=== PATIENT | male | born 1975 | race Caucasian/White ===

== ENCOUNTER 2017-01-11 18:57 | Emergency (ER) | payer OTHER ==
[2017-01-11] MEDS ORDERED: CYCLOBENZAPRINE 10 MG TABLET PO STA (19:48)
[2017-01-11] MEDS ORDERED: HYDROcod/ACETAM 5/325 MG TABLET PO STA (19:48)
[2017-01-11] MEDS ORDERED: DEXAMETHASONE 10 MG/ML VIAL PO STA (19:48)
[2017-01-11] MEDS ORDERED: CYCLOBENZAPRINE 10 MG TABLET PO ONE (19:49)
[2017-01-11] MEDS ORDERED: DEXAMETHASONE 10 MG/ML VIAL ONE (19:49)
[2017-01-11] MEDS ORDERED: HYDROcod/ACETAM 5/325 MG TABLET ONE (19:49)
== END 2017-01-11 20:03 | disposition home or self-care (01) ==
DX: M54.12 Radiculopathy, cervical region (principal); M54.2 Cervicalgia; M62.838 Other muscle spasm; R03.0 Elevated blood-pressure reading, without diagnosis of hypertension
CPT/HCPCS: 99283; A9270

== ENCOUNTER 2017-02-02 13:46 | Outpatient (CLI) | payer OTHER | END 2017-02-02 13:47 | disposition home or self-care (01) | DX: M50.31 Other cervical disc degeneration, high cervical region (principal); M47.812 Spondylosis without myelopathy or radiculopathy, cervical region ==

== ENCOUNTER 2018-08-16 10:30 | Day surgery (SDC) | payer OTHER ==
[~2018-08-16 10:30] MED LIST: BUPIVACAINE 0.25% PF 30 ML VIAL ONE
[2018-08-16] MEDS ORDERED: ceFAZolin 2 GM/50 ML 2 GM/50 ML BAG IV ONE (10:42)
--- NOTE | 2018-08-16 10:59 | ANESTHESIA ---
Pre-Anesthesia VS, & Labs - Diagnosis right 5th metatarsal winn fracture - Procedure right 5th metatarsal open reduction internal fixation Height 5 ft 9 in Weight (kg) 90.8 kg Body Mass Index 28.0 - NPO >8 hours Home Medications and Allergies Home Medications: Ambulatory Orders Acetaminophen [Tylenol] 650 mg PO Q6H PRN 08/13/18 Acetaminophen [Tylenol] 650 mg PO Q6H PRN 08/13/18 Allergies/Adverse Reactions: Allergies Allergy/AdvReac Type Severity Reaction Status Date / Time No Known Drug Allergies Allergy Verified 08/13/18 15:12 Anes History & Medical History - Anesthetic History Anesthesia Complications: reports: No previous complications Family history of Anesthesia Complications: Denies Family history of Malignant Hyperthermia: Denies - Medical History Cardiovascular: reports: None Pulmonary: reports: None Gastrointestinal: reports: None Urinary: reports: None Neuro: reports: None Musculoskeletal: reports: None, Other Endocrine/Autoimmune: reports: None Blood Disorders: reports: None Skin: reports: None Smoking Status: Never smoker Psychosocial: reports: No issues indicated - Surgical History Orthopedic: Other (Cervical disk sugery, 2 levels) Exam General: Alert Dental: Loose/Frag (cracked, right molar) Mouth Opening: Greater than 4 Fingerbreadths Neck Mobility: Normal Mallampati classification: II Thyromental Distance: greater than 6 cm Respiratory: Lungs clear Cardiovascular: Regular rate Neurological: Normal speech Cognitive Status: Within normal limits Plan Anesthesia Type: General Consent for Procedure(s) Verified and Reviewed: Yes Code Status: Attempt Resuscitation ASA classification: 1-Healthy patient Is this case an emergency?: No
[2018-08-16] MEDS ORDERED: LACTATED RINGERS 1,000 ML IV ONE ×2 (11:06→13:41)
[2018-08-16] MEDS ORDERED: KETOROLAC 30 MG/ML VIAL IVP ONE (13:10)
[2018-08-16] MEDS ORDERED: DEXAMETHASONE 4 MG/ML VIAL IVP ONE (13:10)
[2018-08-16] MEDS ORDERED: ePHEDrine 50 MG/ML VIAL IVP ONE (13:10)
[2018-08-16] MEDS ORDERED: PROPOFOL 200 MG/20 ML VIAL IVP ONE (13:10)
[2018-08-16] MEDS ORDERED: MIDAZOLAM 2 MG/2 ML VIAL IVP ONE (13:10)
[2018-08-16] MEDS ORDERED: ONDANSETRON 4 MG/2 ML VIAL IVP ONE (13:10)
[2018-08-16] MEDS ORDERED: LIDOCAINE-MPF 2% 5 ML VIAL IM ONE (13:10)
[2018-08-16] MEDS ORDERED: BUPIVACAINE 0.25% PF 30 ML VIAL SUBQ ONE ×2 (13:39)
[2018-08-16] MEDS: HYDROmorphone 1 MG/ML CARPUJECT ONE ×2 (14:05→14:14)
[2018-08-16] MEDS ORDERED: oxyCODONE 5 MG TABLET PO PRN (14:28)
[2018-08-16] MEDS ORDERED: ONDANSETRON 4 MG/2 ML VIAL IVP PRN (14:28)
--- NOTE | 2018-08-16 14:28 | XRAY Report ---
Reason: right metatarsal fracture Procedure Date: 08/16/2018 Accession Number: [id number] / [id number] Procedure: FL - OR C-Arm Procedure CPT Code: FULL RESULT: EXAM: FLUOROSCOPIC GUIDANCE/FOOT 3 VIEW RIGHT EXAM DATE: 08/16/2018 01:47 PM. CLINICAL HISTORY: Right metatarsal fracture. COMPARISON: ARTHROGRAM 03/14/2016 2:25 PM RIGHT FOOT 08/16/2018 1:47 PM. FINDINGS: The radiologist was not present during the procedure. A Mariaelena wire is seen at the base of the fifth metatarsal followed by cannulated partially threaded compression screw following the same trajectory of the previously seen Mariaelena wire. IMPRESSION: Fluoroscopic guidance provided for right metatarsal fracture operative repair. Total fluoroscopy time: 20 seconds. Number of images: 6. RADIA
--- NOTE | 2018-08-16 14:33 | OPERATIVE REPORT ---
Operative Report - General Procedure Date: 08/16/18 Planned Procedure: Percutaneous fixation of her right fifth metatarsal fracture Pre-Op Diagnosis: Right fifth metatarsal fracture Procedure Performed: Percutaneous fixation of right fifth metatarsal fracture Post Op Diagnosis: Right fifth metatarsal fracture - Procedure Note Primary Surgeon: Toni Llanos Secondary Surgeon: Gerardo Garcia Estimated Blood Loss (mL): 5 Complications: None - Other Other Information/Narrative: DETAILED PROCEDURE: Closed reduction percutaneous fixation of proximal fifth metatarsal fracture IMPLANTS: 5.5 mm solid screw Arthrex POSTOPERATIVE PLAN: No weightbearing for 6 weeks. Boot with ankle range of motion as tolerated. Advance activity after 6 weeks if there is radiographic evidence of healing. FINDINGS: Fracture reduced and compressed. INDICATION FOR SURGERY: 43-year-old male sustained the above fracture last week. We discussed the risks benefits and alternatives to surgery. He originally selected nonoperative management but later decided to have surgery to prevent today a nonunion. Risks include pain, bleeding, infection, damage to nearby structures, lack of symptom relief, implant complications, stiffness, need for further surgeries, DVT, PE, stroke, and even . He signed a written consent form. PROCEDURE IN DETAIL: The patient was met in the preoperative holding on the day of the procedure. Operative extremity was signed. Consent was verified. He desired to proceed. Regional anesthesia was obtained in the preoperative area. He was brought to the operating room and surrendered to anesthesia. Once general anesthesia was obtained he was placed in the supine position and a large bump was placed under the hip. His foot was cleansed with a scrub brush and alcohol. He was then prepped and draped in the standard sterile fashion. A surgical timeout was held to confirm the patient procedure, identity, procedure, laterality, allergies, images, and antibiotics. All were in agreement we proceeded. Under fluoroscopic guidance a K wire was placed in the high and inside position and brought into the intramedullary canal. A 1 cm incision was made over this. 3.5 mm drill opened the canal and reamed the shaft. The tap was then placed and I measured using fluoroscopy to ensure that the threads were beyond the fracture line and that the screw would advance fully to compress the fracture. The K wire and tap were then removed and the appropriately sized 5.5 millimeters screw was placed with excellent purchase. The fracture line was obliterated on x-ray. Final images were then taken. The wound was irrigated and a single stitch was placed. 10 cc of quarter percent Marcaine were placed about the foot and a sterile dressing and boot was applied. As we finished placing the dressing anesthesia noted that the patient was vomiting and acted quickly with suction. He awakened and was transferred to the recovery room without issue.
--- NOTE | 2018-08-16 14:34 | XRAY Report ---
Reason: RIGHT METATARSAL FRACTURE Procedure Date: 08/16/2018 Accession Number: [id number] / [id number] Procedure: XR - Foot 3 View RT CPT Code: FULL RESULT: EXAM: FLUOROSCOPIC GUIDANCE/FOOT 3 VIEW RIGHT EXAM DATE: 08/16/2018 01:47 PM. CLINICAL HISTORY: Right metatarsal fracture. COMPARISON: ARTHROGRAM 03/14/2016 2:25 PM RIGHT FOOT 08/16/2018 1:47 PM. FINDINGS: The radiologist was not present during the procedure. A Mariaelena wire is seen at the base of the fifth metatarsal followed by cannulated partially threaded compression screw following the same trajectory of the previously seen Mariaelena wire. IMPRESSION: Fluoroscopic guidance provided for right metatarsal fracture operative repair. Total fluoroscopy time: 20 seconds. Number of images: 6. RADIA
[2018-08-16] MEDS ORDERED: oxyCODONE 5 MG TABLET ONE (14:49)
[2018-08-16 15:05] VITALS: BP 114/74
== END 2018-08-16 10:31 | disposition home or self-care (01) ==
LOC: SDS 10:30
PROVIDERS: ATTEND Orthopaedic Surgery
PROC: 0QSN34Z Reposition Right Metatarsal with Internal Fixation Device, Percutaneous Approach (ICD-10-PCS; principal; 2018-08-16 11:45)
DX: S92.351A Displaced fracture of fifth metatarsal bone, right foot, initial encounter for closed fracture (principal); X50.1XXA Overexertion from prolonged static or awkward postures, initial encounter; Y93.68 Activity, volleyball (beach) (court); M10.9 Gout, unspecified; G47.30 Sleep apnea, unspecified; M50.20 Other cervical disc displacement, unspecified cervical region; F17.223 Nicotine dependence, chewing tobacco, with withdrawal; Z79.891 Long term (current) use of opiate analgesic; Z79.82 Long term (current) use of aspirin
CPT/HCPCS: 28476; 73630; A9270; J0690; J1170; J7120

== ENCOUNTER 2018-08-27 09:18 | Outpatient (CLI) | payer OTHER | END 2018-08-27 09:19 | disposition home or self-care (01) | LOC: SC 09:18 | PROVIDERS: ATTEND Internal Medicine Pulmonary Disease | DX: R06.81 Apnea, not elsewhere classified (principal); G47.10 Hypersomnia, unspecified; G47.8 Other sleep disorders; R06.83 Snoring; R09.89 Other specified symptoms and signs involving the circulatory and respiratory systems | CPT/HCPCS: 99203; 99212 ==

== ENCOUNTER 2018-10-04 20:32 | Outpatient (CLI) | payer OTHER | END 2018-10-04 20:33 | disposition home or self-care (01) | LOC: SC 20:32 | PROVIDERS: ATTEND Internal Medicine Pulmonary Disease | DX: G47.33 Obstructive sleep apnea (adult) (pediatric) (principal); G47.61 Periodic limb movement disorder | CPT/HCPCS: 95810 ==

== ENCOUNTER 2018-11-21 09:11 | Outpatient (CLI) | payer OTHER | END 2018-11-21 09:12 | disposition home or self-care (01) | LOC: SC 09:11 | PROVIDERS: ATTEND Nurse Practitioner Family | DX: G47.33 Obstructive sleep apnea (adult) (pediatric) (principal) | CPT/HCPCS: 99212; 99214 ==

== ENCOUNTER 2018-12-19 10:41 | Outpatient (CLI) | payer OTHER | END 2018-12-19 10:42 | disposition home or self-care (01) | LOC: SC 10:41 | PROVIDERS: ATTEND Nurse Practitioner Family | DX: G47.33 Obstructive sleep apnea (adult) (pediatric) (principal) | CPT/HCPCS: 99212; 99213 ==

== ENCOUNTER 2020-04-22 17:39 | Emergency (ER) | payer OTHER ==
--- NOTE | 2020-04-22 18:22 | ED Physician Documentation ---
PD HPI HEAD INJURY - Stated complaint Stated Complaint: HEAD LAC - Chief complaint Chief Complaint: Laceration - History obtained from History obtained from: Patient - History of Present Illness Mechanism of head injury: Other (scraped head on roof of car) Where head injury occurred: Home Timing - onset: Today Location of injury: Top Quality of pain: Pain Associated symptoms: Other (laceration). No: LOC, AMS, Amnesia, Nausea / vomiting, Neck pain, Paresthesias, Seizures, Ear drainage, Nasal drainage Symptoms improve with: Rest Symptoms worsen with: Palpation, Movement Contributing factors: No: Anticoagulated Similar symptoms before: Diagnosis (laceration) Recently seen: Not recently seen - Additional information Additional information: 45-year-old male was getting into a small car with his sunglasses over the top of his head when he abraded his head on the roof of the car he pushed to the sunglasses across his head and lacerated the top of his head. He was able to control bleeding with direct pressure. Review of Systems Constitutional: denies: Fever Eyes: denies: Decreased vision Ears: denies: Ear pain Nose: denies: Congestion Throat: denies: Sore throat Respiratory: denies: Cough GI: denies: Vomiting, Constipation, Diarrhea PD PAST MEDICAL HISTORY - Past Medical History Cardiovascular: None Respiratory: None Neuro: None Endocrine/Autoimmune: None GI: None : None HEENT: None Psych: None Musculoskeletal: None, Other Derm: None - Past Surgical History Past Surgical History: No Ortho: Other (Cervical disk sugery, 2 levels) - Present Medications Home Medications: Ambulatory Orders Medication Instructions Recorded Confirmed Acetaminophen [Tylenol] 650 mg PO Q6H PRN 08/13/18 08/16/18 - Allergies Allergies/Adverse Reactions: Allergies Allergy/AdvReac Type Severity Reaction Status Date / Time No Known Drug Allergies Allergy Verified 04/22/20 18:01 - Social History Does the pt smoke?: No Smoking Status: Never smoker Does the pt drink ETOH?: Yes Does the pt have substance abuse?: No - Immunizations Immunizations are current?: Yes - POLST Patient has POLST: No PD ED PE NORMAL - Vitals Vital signs reviewed: Yes (Hypertensive) - General General: Alert and oriented X 3, No acute distress, Well developed/nourished - HEENT HEENT: PERRL, EOMI, Other (There is a 5.5 cm length linear laceration that is clean in the middle of the head. Running anterior posterior) - Neck Neck: Supple, no meningeal sign, No bony TTP - Respiratory Respiratory: No respiratory distress - Derm Derm: Normal color, Warm and dry, No rash - Extremities Extremities: No deformity, No edema - Neuro Neuro: Alert and oriented X 3, wellness program manager 2-12 intact, No motor deficit, No sensory deficit, Normal speech Eye Opening: Spontaneous Motor: Obeys Commands Verbal: Oriented GCS Score: 15 - Psych Psych: Normal mood, Normal affect Results - Vitals Vitals: Vital Signs - 24 hr 04/22/20 17:50 Temperature 36.3 C L Heart Rate 60 Respiratory 16 Rate Blood Pressure 131/72 H O2 Saturation 99 Oxygen O2 Source Room air Procedures - Laceration (location) scalp Length in cm: 5.5 Wound type: Linear, Clean Neurovascular status: Sensory intact, Motor intact, Vascular intact Anesthesia: Lidocaine 1%, With bicarb Wound Preparation: Hibiclens, Irrigated copiously NS, Wound explored, To the base Skin layer closure: [place] Other: Patient tolerated well, No complications, Neurovascular intact, Dressing applied, Tetanus UTD Complexity: Simple PD MEDICAL DECISION MAKING - ED course Complexity details: considered differential, d/w patient ED course: Previously well 45-year-old male with a linear laceration on his scalp tolerates alicia well Departure - Departure Disposition: 01 Home, Self Care Clinical Impression: Scalp laceration Qualifiers: Encounter type: initial encounter Qualified Code(s): S01.01XA - Laceration without foreign body of scalp, initial encounter Condition: Stable Instructions: ED Laceration Scalp Stitch Or Stap Follow-Up: JESSICA Riojas [Provider Group] Comments: [place] should be removed in 7 to 10 days
[2020-04-22 18:54] VITALS: BP 128/82
== END 2020-04-22 18:54 | disposition home or self-care (01) ==
LOC: ED 17:39
DX: S01.01XA Laceration without foreign body of scalp, initial encounter (principal); W22.8XXA Striking against or struck by other objects, initial encounter; Y93.89 Activity, other specified; Y92.008 Other place in unspecified non-institutional (private) residence as the place of occurrence of the external cause
CPT/HCPCS: 12002; 99281; 99282

== ENCOUNTER 2020-05-01 09:00 | Emergency (ER) | payer OTHER ==
[2020-05-01 09:07] VITALS: BP 125/63
--- NOTE | 2020-05-01 09:14 | ED Physician Documentation ---
PD HPI WOUND RECHECK - Stated complaint Stated Complaint: STAPLE REMOVAL - Chief complaint Chief Complaint: Wound - Histroy obtained from History obtained from: Patient - History of Present Illness Location: Scalp Timing - onset: How many days ago (9) Associated symptoms: No: Fever, Redness, Swelling, Drainage Recently seen: Emergency Dept Review of Systems Constitutional: denies: Fever, Chills Neurologic: denies: Focal weakness, Numbness, Altered mental status, Headache PD PAST MEDICAL HISTORY - Past Medical History Cardiovascular: None Respiratory: None Neuro: None Endocrine/Autoimmune: None GI: None : None HEENT: None Psych: None Musculoskeletal: None, Other Derm: None - Past Surgical History Past Surgical History: No Ortho: Other (Cervical disk sugery, 2 levels) - Present Medications Home Medications: Ambulatory Orders Medication Instructions Recorded Confirmed Acetaminophen [Tylenol] 650 mg PO Q6H PRN 08/13/18 08/16/18 - Allergies Allergies/Adverse Reactions: Allergies Allergy/AdvReac Type Severity Reaction Status Date / Time No Known Drug Allergies Allergy Verified 04/22/20 18:01 - Social History Does the pt smoke?: No Smoking Status: Never smoker Does the pt drink ETOH?: Yes Does the pt have substance abuse?: No - Immunizations Immunizations are current?: Yes - POLST Patient has POLST: No PD ED PE NORMAL - Vitals Vital signs reviewed: Yes - General General: Alert and oriented X 3, No acute distress, Well developed/nourished - HEENT HEENT: Other (Frontal scalp with well-healing midline laceration with alicia in place. No signs of infection. Will have nursing remove the alicia) Results - Vitals Vitals: Vital Signs - 24 hr 05/01/20 09:06 Temperature 37 C Heart Rate 71 Respiratory 18 Rate Blood Pressure 125/63 O2 Saturation 100 Oxygen O2 Source Room air PD MEDICAL DECISION MAKING - ED course Complexity details: considered differential (Healing wound without signs of infection.), d/w patient Departure - Departure Disposition: 01 Home, Self Care Clinical Impression: Encounter for staple removal Condition: Stable Record reviewed to determine appropriate education?: Yes Comments: It appears to be healing well. You can use some ointment once or twice daily to the wound until fully healed. That may help with some of the itching. The alicia out will help as well. Some itchiness is common with healing. Discharge Date/Time: 05/01/20 09:23
== END 2020-05-01 09:23 | disposition home or self-care (01) ==
LOC: ED 09:00
DX: S01.01XD Laceration without foreign body of scalp, subsequent encounter (principal)